=== PATIENT | male | born 1990 | race Caucasian/White ===

== ENCOUNTER 2017-10-19 17:07 | Emergency (ER) | payer SELFPAY ==
[~2017-10-19] VITALS: Ht 180.3 cm; Wt 117.9 kg
[2017-10-19] MEDS ORDERED: IV NORMAL SALINE 1,000ML 1,000 ML IV SCH (17:17)
[2017-10-19] MEDS ORDERED: diphenhydrAMINE 50 MG/ML VIAL IV ONE (17:45)
[2017-10-19] MEDS ORDERED: methylPREDNISolone SOD SUCC PF 125 MG/2 ML VIAL. IV ONE (17:45)
[2017-10-19] MEDS ORDERED: FAMOTIDINE 20 MG/2 ML VIAL IVP ONE (17:45)
[2017-10-19 17:55] LABS: BASO # 0.1 x10^3/uL (0.0-0.2); BASO % 0 % (0-3); EOS # 0.2 x10^3/uL (0.0-0.7); EOS % 1 % (0-3); HEMATOCRIT 41.5 % (39.0-53.0); HEMOGLOBIN 14.1 g/dL (13.0-17.5); LYMPH # 1.3 x10^3/uL (1.0-4.8); LYMPH % 8 % (24-48); MEAN CORPUSCULAR HEMOGLOBIN 28 pg (25-35); MEAN CORPUSCULAR HGB CONC 34 g/dL (31-37); MEAN CORPUSCULAR VOLUME 83 fL (79-100); MONO # 0.7 x10^3/uL (0.0-1.1); MONO % 5 % (0-9); NEUT # 13.8 x10^3uL (1.8-7.7); NEUT % 86 % (31-73); PLATELET COUNT 293 x10^3/uL (140-400); RED BLOOD COUNT 4.99 x10^6/uL (4.30-5.70); RED CELL DISTRIBUTION WIDTH 13.7 % (11.5-14.5); WHITE BLOOD COUNT 16.1 x10^3/uL (4.0-11.0)
[2017-10-19] MEDS ORDERED: METH4TAB2 PO (17:58)
[2017-10-19] MEDS ORDERED: HYDR25TA PO (17:58)
--- NOTE | 2017-10-19 17:58 | PHYS DOC ---
Past History Past Medical History: No Pertinent History Past Surgical History: No Surgical History Smoking: Non-smoker Alcohol Use: None Drug Use: None Adult General Chief Complaint Chief Complaint: ALLERGIC REACTION HPI HPI 26-year-old male patient state he started to have upper and lower lips edema since this morning that gradually getting worse. Patient states he feels edema of his kind since this afternoon. Patient states he had history of lip edema but never was as bad as today. Patient denies any known reason for his edema and also denies family history of angioedema. Review of Systems Review of Systems Constitutional: Denies fever or chills [] Eyes: Denies change in visual acuity, redness, or eye pain [] HENT: Denies nasal congestion or sore throat [] Respiratory: Denies cough or shortness of breath [] Cardiovascular: No additional information not addressed in HPI [] GI: Denies abdominal pain, nausea, vomiting, bloody stools or diarrhea [] : Denies dysuria or hematuria [] Musculoskeletal: Denies back pain or joint pain [] Integument: Denies rash or skin lesions [] Neurologic: Denies headache, focal weakness or sensory changes [] Endocrine: Denies polyuria or polydipsia [] All other systems were reviewed and found to be within normal limits, except as documented in this note. Current Medications Current Medications Current Medications Medications (Trade) Dose Ordered Sig/Uvaldo Start Time Stop Time Status Last Admin Dose Admin Diphenhydramine HCl (Benadryl) 50 mg 1X ONCE 10/19/17 17:45 10/19/17 17:46 DC 10/19/17 17:44 50 MG Famotidine (Pepcid Vial) 20 mg 1X ONCE 10/19/17 17:45 10/19/17 17:46 DC 10/19/17 17:43 20 MG Methylprednisolone Sodium Succinate (SOLU-Medrol 125MG VIAL) 125 mg 1X ONCE 10/19/17 17:45 10/19/17 17:46 DC 10/19/17 17:44 125 MG Sodium Chloride 1,000 ml @ 1,000 mls/hr Q1H 10/19/17 17:17 10/19/17 18:16 10/19/17 17:30 1,000 MLS/HR Allergies Allergies Allergies Coded Allergies Type Severity Reaction Last Updated Verified cefaclor Allergy Intermediate 10/19/17 Yes Physical Exam Physical Exam Constitutional: Well developed, well nourished, mild distress, non-toxic appearance. [] HENT: Normocephalic, atraumatic, bilateral external ears normal, upper and lower lip moderate edema without itching, no tongue edema, oropharynx moist, no oral exudates, nose normal. [] Eyes: PERRLA, EOMI, conjunctiva normal, no discharge. [] Neck: Normal range of motion, no tenderness, supple, no stridor. [] Cardiovascular:Heart rate regular rhythm, no murmur [] Lungs & Thorax: Bilateral breath sounds clear to auscultation [] Skin: Warm, dry, no erythema, no rash. [] ] Neurologic: Alert and oriented X 3, normal motor function, normal sensory function, no focal deficits noted. [] Psychologic: Affect normal, judgement normal, mood normal. [] EKG EKG [] Radiology/Procedures Radiology/Procedures [] Course & Med Decision Making Course & Med Decision Making Pertinent Labs reviewed. (See chart for details) []Evaluation of patient in ER showed 26-year-old male patient with swelling of upper and lower lips since this morning. Patient did not have tongue and uvula edema and respiratory problem. Patient treated with IV fluid and Solu-Medrol and Benadryl and Pepcid and felt better. Labs showed white count of 16,000 with bandemia that was mainly related to assess without having tachycardia, fever, hypotension, altered level of consciousness. Patient had history of marker edema without history of angioedema. Patient instructed to follow-up with ignition specialist for allergic skin test and more evaluation regarding episodes of angioedema. Dragon Disclaimer Dragon Disclaimer This electronic medical record was generated, in whole or in part, using a voice recognition dictation system. Departure Departure: Impression: Primary Impression: Angioedema Disposition: HOME, SELF-CARE (At 1818) Condition: IMPROVED Referrals: DEBI SOLIMAN APRN (PCP) Patient Instructions: Allergy Testing for Children, Angioedema Additional Instructions: Drink plenty of liquids Follow-up with your primary care physician in 3-5 days Return to ER if not getting better Scripts Hydroxyzine Hcl (HYDROXYZINE HCL) 25 Mg Tablet 1 TAB PO TID, #30 TAB Prov: ARTHUR EAGLE MD 10/19/17 Methylprednisolone (MEDROL) 4 Mg Tab.ds.pk 1 PKG PO UD, #1 PKG Prov: ARTHUR EAGLE MD 10/19/17 ARTHUR EAGLE MD Oct 19, 2017 17:58
[2017-10-19 18:10] LABS: ALBUMIN 3.8 g/dL (3.4-5.0); CALCIUM 9.2 mg/dL (8.5-10.1); GFR 90.3; POTASSIUM 3.8 mmol/L (3.5-5.1); TOTAL BILIRUBIN 0.4 mg/dL (0.2-1.0); TOTAL PROTEIN 7.6 g/dL (6.4-8.2)
[2017-10-19 18:15] VITALS: BP 125/74
[2017-10-19 22:13] LABS: % BANDS 16 % (0-9); % EOS 2 % (0-5); % LYMPHS 8 % (24-48); % MONOS 4 % (0-10); % SEGS 67 % (35-66)
[2017-10-19 22:15] LABS: PLT ESTIMATE ADEQUATE (ADEQUATE)
[2017-10-19 22:19] LABS: % ATYL 3 % (0-0)
== END 2017-10-19 18:45 | disposition home or self-care (01) ==
LOC: ER 17:07
DX: T78.3XXA Angioneurotic edema, initial encounter (principal); Z88.1 Allergy status to other antibiotic agents
CPT/HCPCS: 36415; 80053; 85007; 85025; 96374; 96375; 99284; J1200; J2930; S0028; J7030

== ENCOUNTER → 2019-03-03 | Outpatient (CLI) | payer OTHER ==
[~2019-03-03] MED LIST: HYDR25TA PO; METH4TAB2 PO
--- NOTE | 2019-03-03 17:08 | RAD ---
ANKLE LEFT 3V History: Pain. FINDINGS: No evidence of acute fracture. Talar dome appears intact. No significant soft tissue swelling. Ankle mortise intact. No evidence of aggressive bone destruction. IMPRESSION: No acute radiographic findings. Electronically signed by: Adrian Ugalde MD (03/03/2019 5:05 PM) [facility] [id number]
== END | disposition home or self-care (01) ==
LOC: PMG 14:02
PROVIDERS: ATTEND Registered Nurse
DX: M25.572 Pain in left ankle and joints of left foot (principal)
CPT/HCPCS: 73610

== ENCOUNTER → 2020-12-28 | Outpatient (CLI) | payer OTHER ==
[~2020-12-28] MED LIST changes: +BUDESONIDE 0.5 MG/2 ML NEBU NEB ONE; +CASIRIVIMAB/IMDEVIMAB 600/600mg in IV NS TV=50 ML IV ONE
[2020-12-28 13:15] VITALS: BP 137/79
--- NOTE | 2020-12-28 14:50 | NUR ---
The Patient was observed post infusion for 1 hour. The Patient tolerated the infusion well with no adverse reactions noted. Patient received the infusion information sheet provided by pharmacy. The peripheral IV was removed with no complications. Patient left the unit via ambulation accompanied by this RN. Patient left the hospital in a private vehicle.
== END | disposition home or self-care (01) ==
LOC: OPINF 13:01
PROVIDERS: ATTEND Family Medicine
DX: U07.1 COVID-19 (principal)
CPT/HCPCS: M0243; Q0243; 36592; 96365